=== PATIENT | female | born 1970 | race Caucasian/White ===

== ENCOUNTER 2021-04-25 20:31 | Emergency (ER) | payer BC ==
[2021-04-25 21:04] VITALS: BP 149/84; PULSE 68; TEMP 98.5; BMI 31.1
== END 2021-04-25 21:57 | disposition home or self-care (01) ==
LOC: FER 20:31
DX: R07.89 Other chest pain (principal)
CPT/HCPCS: 36415; 82550; 84484; 93005; 99284-25